=== PATIENT | male | born 1975 | race Caucasian/White ===

== ENCOUNTER 2024-06-24 01:07 | Emergency (ER) | payer BC ==
[~2024-06-24] VITALS: Ht 185.4 cm; Wt 127.3 kg
[2024-06-24 01:30] LABS: HEMATOCRIT 51.2 % (42.0-52.0); HEMOGLOBIN 18.3 g/dl (13.5-17.5); MEAN CORPUSCULAR HEMOGLOBIN 30.9 pg (27.0-33.0); MEAN CORPUSCULAR HGB CONC 35.7 g/dl (32.0-36.5); MEAN CORPUSCULAR VOLUME 86.3 fl (80.0-96.0); PLATELET COUNT, AUTOMATED 161 10^3/uL (150-450); RED BLOOD COUNT 5.93 10^6/uL (4.30-6.10); WHITE BLOOD COUNT 7.2 10^3/uL (4.0-10.0)
[2024-06-24 01:53] LABS: CK-MB VALUE MASS < 1.0 NG/ML (<3.6)
[2024-06-24 01:55] LABS: ALBUMIN 4.2 G/DL (3.2-5.2); ALKALINE PHOSPHATASE 75 U/L (40-129); ALT/SGPT 42 U/L (7.0-40); AST/SGOT 40 U/L (<34); BILIRUBIN,DIRECT 0.4 MG/DL (<0.4); BLOOD UREA NITROGEN 12 MG/DL (9-23); CALCIUM LEVEL 8.5 MG/DL (8.5-10.1); CARBON DIOXIDE LEVEL 20 MMOL/L (20-31); CHLORIDE LEVEL 106 MMOL/L (98-107); CPK CREATINE PHOSPHOKINASE 156 U/L (46-171); CREATININE FOR GFR 1.03 MG/DL (0.70-1.30); GLOMERULAR FILTRATION RATE 89.6 (>60); GLUCOSE, FASTING 111 MG/DL (60-100); MB/CK RELATIVE INDEX 0.64 (< OR =4); POTASSIUM SERUM 3.8 MMOL/L (3.5-5.1); SODIUM LEVEL 136 MMOL/L (136-145); TOTAL PROTEIN 7.4 G/DL (5.7-8.2)
[2024-06-24] MEDS: NS (Normal Saline) 0.9% 1,000 ML IV ONE (02:02)
[2024-06-24] MEDS: ASPIRIN 81MG CHEW TABLET PO ONE (02:02)
[2024-06-24 02:15] LABS: MAGNESIUM LEVEL 1.7 MG/DL (1.8-2.4); PHOSPHORUS LEVEL 1.9 MG/DL (2.5-4.9)
[2024-06-24] MEDS ORDERED: NEUTRA-PHOS 1.5 GM PACKET PO ONE (02:50)
[2024-06-24] MEDS ORDERED: NEUTRA-PHOS 1.5 GM PACKET PO SCH (02:50)
[2024-06-24] MEDS ORDERED: MAG SULF IV ONE (02:50)
[2024-06-24] MEDS: ACETAMINOPHEN *IV* 1,000 MG in IV 1 EA IV ONE (02:50)
[2024-06-24 02:59] LABS: INR 1.01; PARTIAL THROMBOPLASTIN TIME 30.6 SECONDS (24.8-34.2); PROTHROMBIN TIME 13.6 SECONDS (12.5-14.5)
[2024-06-24] MEDS: MAG SULF 1GM/100ML (MAG RUN) 1 GM in IV 1 EA IV ONE ×2 (03:49→03:50)
[2024-06-24] MEDS: NEUTRA-PHOS 1.5 GM PACKET PO SCH (03:50)
[2024-06-24 05:35] LABS: LIPASE 25 U/L (12-53)
[2024-06-24 05:36] LABS: CK-MB VALUE MASS < 1.0 NG/ML (<3.6)
[2024-06-24 05:42] LABS: CPK CREATINE PHOSPHOKINASE 147 U/L (46-171); MB/CK RELATIVE INDEX 0.68 (< OR =4)
[2024-06-24 06:52] VITALS: BP 138/69; TEMP 99.1; O2SAT 98
== END 2024-06-24 07:00 | disposition home or self-care (01) ==
LOC: M ED 01:07
DX: R07.89 Other chest pain (principal); R00.0 Tachycardia, unspecified; I45.81 Long QT syndrome; K21.9 Gastro-esophageal reflux disease without esophagitis; I10 Essential (primary) hypertension; E78.5 Hyperlipidemia, unspecified; Z88.1 Allergy status to other antibiotic agents
CPT/HCPCS: 71045; 80048; 80076; 82550; 82553; 83690; 83735; 83880; 84100; 84484; 85027; 85610; 85730; 87486; 87581; 87633; 87798; 93005; 93041; 96365; 96366; 99285; J0131; J3475